=== PATIENT | male | born 1940 | race Caucasian/White ===

== ENCOUNTER 2020-12-20 09:57 | Inpatient (IN) | payer MEDICARE ==
[~2020-12-20] VITALS: Ht 167.6 cm; Wt 178.6 kg
[~2020-12-20 09:57] MED LIST: ACET500T68 PO; ASPI-630 PO; ASPI81TA50 PO; ASPI81TA59 PO; CEFT1FRO2 IV; CETI10TA16 PO; CETI10TA74 PO; CLON1TAB PO; DILT240T8 PO; DULO60CA6 PO; FINA5TAB4 PO; FLUO20CA20 PO; FURO20TA3 PO; FURO40TA4 PO; FURO80TA72 PO; GLIM1TAB PO; GLIM2TAB7 PO; IPRA4AER INH; LACT10SO2 PO; LACT10SO26 PO; LACT1CAP21 PO; LACT1CAP37 PO; LINE600T12 PO; LOSA100T14 PO; MAGN200T7 PO; MAGN250T9 PO; MAGN400T5 PO; MAGN500C10 PO; METO50TA6 PO; MOME15CR7 TP; MULT-245 PO; MULT-445 PO; MUPI15CR8 TP; NYST15PO9 TP; OMEG-33 PO; OMEG1CAP38 PO; ONDA4TAB12 PO; OXYB5TAB10 PO; OXYB5TAB33 PO; PHEN26CR2 RC; PHEN28OI8 RC; PIOG30TA41 PO; POTA10TA5 PO; POTA20TA4 PO; RIFA550T4 PO; SERT-268 PO; SIMV40TA18 PO; SIMV80TA17 PO; SITA100T PO; TAMS0.4C97 PO; ZOLP10TA PO
[2020-12-20] MEDS ORDERED: IV NORMAL SALINE 1,000ML 1,000 ML IV ONE (10:00)
--- NOTE | 2020-12-20 10:30 | PHYS DOC ---
Past History Past Medical History: CHF, COPD, Depression, Diabetes, Renal Disease, Vascular Disease (Venous insufficiency) Additional Past Medical Histor: Right retinal detachment Past Medical History Limited secondary to altered mental status Past Surgical History: Knee Replacement Past Surgical History Limited secondary to altered mental status Smoking: Non-smoker Alcohol Use: None Drug Use: None Social History Limited secondary to altered mental status General Adult EDM: Chief Complaint: ALTERED MENTAL STATUS HPI: HPI: Patient is a 80 year old male who presents via EMS with 2 day history of altered mental status. Per EMS, patient's reports he has been less responsive to her questions over the last few days and has been acting "odd" during the same time. He was recently discharged from [place] [place] [facility] for "high blood sugar" on new diabetic medication. EMS reports at home fingerstick glucose was in the 180s and EKG was unremarkable. Further information obtained from patient's daughter reveals patient was talking about grandchildren that he does not have last night. She also adds that the patient has a history of metabolic encephalopathy. Review of the patient's medical record shows that he was admitted in October of 2020 for new onset T2DM at which time he was started on insulin therapy. He was discharged to [place] for strength rehabilitation and his sugars were controlled at that time. Patient denies nausea, vomiting, headache, sensory changes, or focal weakness. History of present illness limited secondary to mental status changes. Review of Systems: Review of Systems: Constitutional: Denies fever or chills Integument: Denies rash Neurologic: Reports altered mental status Review of systems limited secondary to altered mental status. Current Medications: Current Meds: Current Medications Medications (Trade) Dose Ordered Sig/Ivis Start Time Stop Time Status Last Admin Dose Admin Sodium Chloride 1,000 ml @ 1,000 mls/hr 1X ONCE 12/20/20 10:00 12/20/20 10:59 UNV Physical Exam: PE: Constitutional: Well developed, obese, no acute distress, non-toxic appearance HENT: Normocephalic, atraumatic Eyes: Chronic right eye drooping secondary to prior retinal detachment. PERRL, conjunctiva normal, no discharge Neck: Normal range of motion, supple Lungs & Thorax: No respiratory distress, equal chest rise and fall Abdomen: Soft, no tenderness Skin: Bilateral chronic stasis dermatitis. Otherwise warm, dry and intact. Back: No tenderness, no CVA tenderness Extremities: No tenderness, ROM intact, bilateral lower extremity edema Neurologic: Alert to person only. Normal sensory function, no focal deficits noted Psychologic: Affect normal, judgment abnormal EKG: EKG: @1000: 85 BPM, normal sinus rhythm with occasional PVCs, no ST elevation, QRS 104ms, QTC 530ms Radiology/Procedures: Radiology/Procedures: CT STROKE HEAD W/O History: Reason: altered mental status / Spl. Instructions: / History: Comparison: None. Technique: Noncontrast CT imaging was performed of the head. Exposure: One or more of the following individualized dose reduction techniques were utilized for this examination: 1. Automated exposure control 2. Adjustment of the mA and/or kV according to patient size 3. Use of iterative reconstruction technique. Findings: No intracranial hemorrhage. No mass effect. No hydrocephalus. Moderate brain parenchymal volume loss. Mild foci of decreased attenuation within the hemispheric white matter, most often due to chronic microvascular ischemia. Intracranial atheromatous calcifications. Imaged orbits are unremarkable. Imaged paranasal sinuses and mastoid air cells are clear. No acute calvarial fracture. Impression: 1. No acute intracranial abnormality. FOR INTERNAL CODING PURPOSES Critical result: Findings discussed with Dr. Limon at 12/20/2020 10:23 AM. RESULT CODE: (C) Electronically signed by: Elian Bansal DO (12/20/2020 10:31 AM) [id number] XR CHEST 1V History: Reason: altered mental status / Spl. Instructions: / History: Comparison: July 14, 2020. Findings: Degraded evaluation due to patient's altered mental status and ability to be properly positioned. No consolidation within the imaged lung. No definite pleural effusion. No pneumothorax. Unchanged enlarged cardiac size. Impression: 1. Degraded evaluation. No definite acute cardiopulmonary process. Electronically signed by: Elian Bansal DO (12/20/2020 11:03 AM) [id number] Heart Score: C/O Chest Pain: N/A Course & Med Decision Making: Course & Med Decision Making Pertinent Labs and Imaging studies reviewed. (See chart for details) 80 year old male with multiple co-morbidities presents with 2 day history of altered mental status. Code Stroke activated and emergent CT head revealed no signs of intracranial hemorrhage. Chest x-ray stable. Blood glucose on arrival was 222. Blood ammonia level was 130. Lactic acid elevated. WBC within normal limits. No active signs of infection appreciated. History and laboratory data consistent with metabolic encephalopathy. Lactulose provided. Hypokalemia and hypomagnesemia addressed. Patient requiring admission for further evaluation and treatment. Discussed with Dr. Juarez (hospitalist) who is in agreement with admission. Discussed findings and plan with patient and daughter, who acknowledge understanding and agreement. Dragon Disclaimer: Dragon Disclaimer: This electronic medical record was generated, in whole or in part, using a voice recognition dictation system. Departure Departure: Impression: Primary Impression: Acute metabolic encephalopathy Additional Impressions: Lactic acidosis Hypokalemia Hypomagnesemia Disposition: ADMITTED INPATIENT Admitting Physician: Ricky Juarez Condition: STABLE Referrals: FAWAD DELAROSA MD (PCP) SHIVANI LIMON DO Dec 20, 2020 10:30
--- NOTE | 2020-12-20 10:33 | RAD ---
CT STROKE HEAD W/O History: Reason: altered mental status / Spl. Instructions: / History: Comparison: None. Technique: Noncontrast CT imaging was performed of the head. Exposure: One or more of the following individualized dose reduction techniques were utilized for thi s examination: 1. Automated exposure control 2. Adjustment of the mA and/or kV according to patient size 3. Use of iterative reconstruction technique. Findings: No intracranial hemorrhage. No mass effect. No hydrocephalus. Moderate brain parenchymal volume loss. Mild foci of decreased attenuation within the hemispheric whi te matter, most often due to chronic microvascular ischemia. Intracranial atheromatous calcifications . Imaged orbits are unremarkable. Imaged paranasal sinuses and mastoid air cells are clear. No acute ca lvarial fracture. Impression: 1. No acute intracranial abnormality. FOR INTERNAL CODING PURPOSES Critical result: Findings discussed with Dr. Larios at 12/20/2020 10:23 AM. RESULT CODE: (C) Electronically signed by: Elian Bansal DO (12/20/2020 10:31 AM) [id number]
[2020-12-20 10:34] LABS: BASO # 0.1 x10^3/uL (0.0-0.2); BASO % 1 % (0-3); EOS # 0.3 x10^3/uL (0.0-0.7); EOS % 5 % (0-3); HEMATOCRIT 42.6 % (39.0-53.0); HEMOGLOBIN 14.7 g/dL (13.0-17.5); LYMPH # 1.3 x10^3/uL (1.0-4.8); LYMPH % 22 % (24-48); MEAN CORPUSCULAR HEMOGLOBIN 33 pg (25-35); MEAN CORPUSCULAR HGB CONC 35 g/dL (31-37); MEAN CORPUSCULAR VOLUME 95 fL (79-100); MONO # 1.2 x10^3/uL (0.0-1.1); MONO % 20 % (0-9); NEUT # 3.1 x10^3uL (1.8-7.7); NEUT % 52 % (31-73); PLATELET COUNT 111 x10^3/uL (140-400); RED BLOOD COUNT 4.51 x10^6/uL (4.30-5.70); RED CELL DISTRIBUTION WIDTH 14.8 % (11.5-14.5)
[2020-12-20 10:42] LABS: CREATININE 1.1 mg/dL (0.7-1.3); GFR 64.7; POTASSIUM 3.1 mmol/L (3.5-5.1)
--- NOTE | 2020-12-20 10:47 | EKG ---
[address] [address] Test Date: 2020-12-20 Test Time: 10:30:45 Pat Name: SUZETTE NGUYEN Department: Room: Gender: M Web Developer: VIRGEN : 1940 Requested By: SHIVANI LIMON Order Number: [id number] Reading MD: Measurements Intervals Riner Rate: 85 P: AK: QRS: 7 QRSD: 104 T: 61 QT: 440 QTc: 530 Interpretive Statements IRREGULAR RHYTHM, NO P-WAVE FOUND VENTRICULAR PREMATURE COMPLEX(ES), TRIGEMINY PROLONGED QT ABNORMAL ECG RI6.02 No previous ECG available for comparison
[2020-12-20 10:58] LABS: ALBUMIN 3.2 g/dL (3.4-5.0); ALBUMIN/GLOBULIN RATIO 0.7 (1.0-1.7); MAGNESIUM 1.6 mg/dL (1.8-2.4); TOTAL BILIRUBIN 1.8 mg/dL (0.2-1.0); TOTAL PROTEIN 8.1 g/dL (6.4-8.2)
--- NOTE | 2020-12-20 11:06 | RAD ---
XR CHEST 1V History: Reason: altered mental status / Spl. Instructions: / History: Comparison: July 14, 2020. Findings: Degraded evaluation due to patient's altered mental status and ability to be properly positioned. No consolidation within the imaged lung. No definite pleural effusion. No pneumothorax. Unchanged enlarg ed cardiac size. Impression: 1. Degraded evaluation. No definite acute cardiopulmonary process. Electronically signed by: Elian Bansal DO (12/20/2020 11:03 AM) [id number]
[2020-12-20] MEDS ORDERED: LACTULOSE 20 GM/30 ML SOLUTION. PO ONE (11:30)
[2020-12-20] MEDS ORDERED: MAGNESIUM SULFATE 2GM 50 ML IV ONE (11:30)
[2020-12-20] MEDS ORDERED: POTASSIUM CHLORIDE 10 MEQ TABLET.ER. PO ONE (11:30)
[2020-12-20 11:31] LABS: BACTERIA,URINE 0 /HPF (0-FEW); BILIRUBIN,URINE NEG (NEG); CLARITY,URINE HAZY; COLOR,URINE YELLOW; GLUCOSE,URINE NEG (NEG); NITRITE,URINE NEG (NEG); RBC,URINE 0 /HPF (0-2); SQUAMOUS EPITHELIAL CELL,UR FEW /LPF
[2020-12-20] MEDS ORDERED: DEXTROSE 50% 25 GM / 50ML DISP.SYRIN. IV PRN (12:00)
[2020-12-20] MEDS: INSULIN LISPRO 300 UNITS/3 ML VIAL. SQ SCH ×2 (12:00→17:47)
[2020-12-20 13:24] VITALS: BP 126/77
--- NOTE | 2020-12-20 13:50 | HP ---
ADMIT DATE: 12/20/2020 ADMISSION HISTORY AND PHYSICAL ATTENDING PHYSICIAN: Dr. Juarez. CHIEF COMPLAINT: Confusion. HISTORY OF PRESENT ILLNESS: The patient is a 80-year-old gentleman well known to us from multiple previous admissions. He has altered mentation. He has a known diagnosis of hepatic encephalopathy, most likely on the basis of passive congestion as well as nonalcoholic steatohepatitis. He was supposedly taking Chronulac, oral lactulose, but he may have not been getting it and again the records are sketchy from previous admissions in the office. Today, his daughter brings him in. He is very confused, lethargic. Ammonia level is 130. He is admitted then with exacerbation of hepatic encephalopathy. I believe in the past he has been admitted with similar condition and treated with lactulose with improvement. PAST MEDICAL HISTORY: Significant for morbid obesity. He is in excess of 400 pounds. He also has acute on chronic diastolic congestive heart failure, sleep apnea, stasis dermatitis, dehydration, obstructive sleep apnea, morbid obesity, poorly controlled diabetes and elevated ammonia levels due to his liver disease. CURRENT MEDICINES: At home included lactulose whether he was taken or not, remains to be seen, aspirin, diltiazem, Cymbalta, finasteride, Lasix 80 twice a day, lactobacillus, multivitamin, omega 3, oxybutynin, potassium, and Zocor. ALLERGIES: HE HAS ALLERGIES TO PEDRO INHIBITORS, PIPERACILLIN, TAZOBACTAM AND VANCOMYCIN, EXACT REACTION IS UNCLEAR. SOCIAL HISTORY: He is a nonsmoker, nondrinker. FAMILY HISTORY: Noncontributory. REVIEW OF SYSTEMS: Poor social situation, lives at home with his . He is in excess of 400 pounds. She does her best, but cannot take care of him. We had discussed many times in the past that he needs to go to a shelter, but the deal breaker is cost and his 's feeling that she can take care of at home. The daughter is aware of this and she is kind of stuck to with the current predicament. The rest of the detailed review of systems is unobtainable due to patient's state. PHYSICAL EXAMINATION: VITAL SIGNS: When I saw him today, his blood pressure is 130 systolic. He is afebrile. Oxygen saturation 97% on room air. HEENT: Head is without trauma. Pupils are reactive. Sclerae nonicteric. Oropharynx is clear. NECK: Supple, no bruits. LUNGS: Shallow respirations. CARDIOVASCULAR: Showed distant heart tones. No gallops. ABDOMEN: Obese, protuberant. I cannot appreciate any liver or spleen enlargement. Bowel sounds are hypoactive. EXTREMITIES: Showed 3+ edema. NEUROLOGIC FINDINGS: Confused, but somewhat arousable. PERTINENT LABORATORY STUDIES: The ammonia level is 130. Chemistry panel is pending. Nonfasting blood sugar 200. ASSESSMENT: 1. A 80-year-old gentleman with hepatic encephalopathy. 2. Liver disease on the basis of passive congestion and nonalcoholic steatohepatitis. 3. Morbid obesity in excess of 400 pounds. 4. Acute on chronic diastolic congestive heart failure. 5. Essential hypertension. 6. Type 2 diabetes. 7. Stasis dermatitis. 8. Generalized debilitation. He does not ambulate and sits in a chair all day. PLAN: 1. Admit to the inpatient unit. 2. Telemetry monitoring. 3. Restart lactulose scheduled. 4. Continue home meds. 5. Serial chemistries. 6. Diabetic diet as tolerated. 7. We will monitor his blood sugars. SARA DR: FARRAH/guillermina TID: [id number] CC: FAWAD DELAROSA MD
[2020-12-20] MEDS ORDERED: ACETAMINOPHEN 500 MG TABLET PO PRN (14:45)
[2020-12-20 14:58] VITALS: BP 149/74
[2020-12-20] MEDS ORDERED: METO2.5T PO ×2 (15:18→15:30)
[2020-12-20] MEDS ORDERED: INSU100V8 SQ (15:18)
[2020-12-20] MEDS ORDERED: ACET500T68 PO (15:18)
[2020-12-20] MEDS ORDERED: LACT10SO26 PO (15:18)
[2020-12-20] MEDS: metOLazone 2.5 MG TABLET PO SCH (17:44)
[2020-12-20 18:46] VITALS: BP 146/80
[2020-12-20] MEDS: LACTULOSE 20 GM/30 ML SOLUTION. PO SCH (19:38)
[2020-12-20] MEDS: LACTOBACILLUS RHAMNOSUS GG 1 CAPSULE. PO SCH (19:38)
[2020-12-20] MEDS: ATORVASTATIN CALCIUM 20 MG TABLET PO SCH (19:39)
[2020-12-20] MEDS: OXYBUTYNIN CHLORIDE 5 MG TABLET PO SCH (19:39)
[2020-12-20] MEDS: OMEGA-3 FATTY ACIDS/FISH OIL 1,000 MG CAPSULE. PO SCH (19:39)
[2020-12-20] MEDS: POTASSIUM CHLORIDE 20 MEQ TABLET.ER. PO SCH (19:39)
[2020-12-20] MEDS: FUROSEMIDE 80 MG TABLET PO SCH (19:40)
[2020-12-20] MEDS: INSULIN GLARGINE SYRINGE. SQ SCH (21:03)
[2020-12-20 23:00] VITALS: BP 152/77
[2020-12-21 02:58] VITALS: BP 134/73
[2020-12-21 06:03] VITALS: BP 137/67
--- NOTE | 2020-12-21 08:53 | PN ---
DATE: 12/21/2020 ATTENDING PHYSICIAN: Dr. Juarez. SUBJECTIVE: The patient is awake today, but is still not tracking. He is unable to maintain a conversation. He is bedridden. He has no insight as to what is going on. Does not remember much and can barely keep his eyes open. OBJECTIVE FINDINGS: VITAL SIGNS: Blood pressure this morning is 137/67 mmHg. He is afebrile. Oxygen saturation 91% on room air, pulse is 79 and regular. HEENT: Head is without trauma. Pupils are reactive. Sclerae nonicteric. Oropharynx is clear. NECK: Supple, no bruits. LUNGS: Otherwise clear. CARDIOVASCULAR: Showed distant heart tones. No gallops. ABDOMEN: Obese, protuberant. We cannot assess any organ enlargement due to his girth. EXTREMITIES: Showed chronic stasis dermatitis and cellulitis. He is bedridden. NEUROLOGIC: He remains encephalopathic and little more arousable than yesterday. FOLLOWUP LABORATORY DATA: His blood sugar is 166 mg/dL today because of the lack of correlation with ammonia and hepatic encephalopathy. We have not repeated the ammonia levels. We will treat him clinically based on his symptoms. ASSESSMENT: 1. A 80-year-old gentleman with hepatic encephalopathy, the liver diseases a combination of passive congestion and nonalcoholic steatohepatitis. 2. Morbid obesity. His weight had been over 400 pounds. He is down to 397 on this admission. 3. Essential hypertension. 4. Type 2 diabetes. 5. Stasis dermatitis and does have generalized debilitation. He does not ambulate and sits in a chair all day. PLAN: 1. Continue lactulose as ordered. 2. Telemetry monitoring. 3. Glucose monitoring. 4. Diet as tolerated. 5. The family is wanting him to go to a higher level of care. We will look at a local [facility]. 6. He is a DNR per advanced directives. FARRAH/PHIL DR: FARRAH/guillermina TID: [id number] CC: FAWAD DELAROSA MD
[2020-12-21] MEDS: OMEGA-3 FATTY ACIDS/FISH OIL 1,000 MG CAPSULE. PO SCH ×2 (09:12→20:31)
[2020-12-21] MEDS: ASPIRIN CHEWABLE 81 MG TABLET. PO SCH (09:12)
[2020-12-21] MEDS: MULTIVITAMIN with MINERAL TABLET. PO SCH (09:13)
[2020-12-21] MEDS: LACTOBACILLUS RHAMNOSUS GG 1 CAPSULE. PO SCH ×2 (09:13→20:31)
[2020-12-21] MEDS: DULoxetine HCL 60 MG CAPSULE.DR PO SCH (09:13)
[2020-12-21] MEDS: FINASTERIDE 5 MG TABLET. PO SCH (09:13)
[2020-12-21] MEDS: POTASSIUM CHLORIDE 20 MEQ TABLET.ER. PO SCH ×2 (09:13→20:31)
[2020-12-21] MEDS: LACTULOSE 20 GM/30 ML SOLUTION. PO SCH ×2 (09:14→20:31)
[2020-12-21] MEDS: FUROSEMIDE 80 MG TABLET PO SCH ×2 (09:14→20:32)
[2020-12-21] MEDS: INSULIN LISPRO 300 UNITS/3 ML VIAL. SQ SCH ×3 (09:20→17:09)
[2020-12-21 10:56] VITALS: BP 146/88
[2020-12-21 14:39] VITALS: BP 126/57
[2020-12-21] MEDS: OXYBUTYNIN CHLORIDE 5 MG TABLET PO SCH (20:31)
[2020-12-21] MEDS: ATORVASTATIN CALCIUM 20 MG TABLET PO SCH (20:31)
[2020-12-21] MEDS: INSULIN GLARGINE SYRINGE. SQ SCH (21:00)
[2020-12-21 21:40] VITALS: BP 147/82
[2020-12-22 05:46] VITALS: BP 157/68
[2020-12-22] MEDS: INSULIN LISPRO 300 UNITS/3 ML VIAL. SQ SCH ×3 (08:00→18:06)
[2020-12-22 08:20] LABS: BASO # 0.1 x10^3/uL (0.0-0.2); BASO % 1 % (0-3); EOS # 0.3 x10^3/uL (0.0-0.7); EOS % 5 % (0-3); HEMATOCRIT 39.3 % (39.0-53.0); HEMOGLOBIN 13.9 g/dL (13.0-17.5); LYMPH # 1.6 x10^3/uL (1.0-4.8); LYMPH % 22 % (24-48); MEAN CORPUSCULAR HEMOGLOBIN 33 pg (25-35); MEAN CORPUSCULAR HGB CONC 35 g/dL (31-37); MEAN CORPUSCULAR VOLUME 94 fL (79-100); MONO # 1.2 x10^3/uL (0.0-1.1); MONO % 17 % (0-9); NEUT # 4.1 x10^3uL (1.8-7.7); NEUT % 56 % (31-73); PLATELET COUNT 98 x10^3/uL (140-400); RED BLOOD COUNT 4.18 x10^6/uL (4.30-5.70); RED CELL DISTRIBUTION WIDTH 15.2 % (11.5-14.5); WHITE BLOOD COUNT 7.4 x10^3/uL (4.0-11.0)
[2020-12-22 08:37] LABS: ALBUMIN 2.9 g/dL (3.4-5.0); ALBUMIN/GLOBULIN RATIO 0.7 (1.0-1.7); CALCIUM 9.1 mg/dL (8.5-10.1); GFR 72.3; TOTAL BILIRUBIN 2.6 mg/dL (0.2-1.0); TOTAL PROTEIN 7.3 g/dL (6.4-8.2)
[2020-12-22] MEDS: FUROSEMIDE 80 MG TABLET PO SCH ×2 (09:00→09:41)
[2020-12-22 09:01] LABS: POTASSIUM 2.5 mmol/L (3.5-5.1)
[2020-12-22] MEDS: POTASSIUM CHLORIDE 20 MEQ TABLET.ER. PO SCH ×2 (09:41→21:56)
[2020-12-22] MEDS: ASPIRIN CHEWABLE 81 MG TABLET. PO SCH (09:41)
[2020-12-22] MEDS: LACTOBACILLUS RHAMNOSUS GG 1 CAPSULE. PO SCH ×2 (09:41→21:57)
[2020-12-22] MEDS: OMEGA-3 FATTY ACIDS/FISH OIL 1,000 MG CAPSULE. PO SCH ×2 (09:41→21:57)
[2020-12-22] MEDS: DULoxetine HCL 60 MG CAPSULE.DR PO SCH (09:41)
[2020-12-22] MEDS: FINASTERIDE 5 MG TABLET. PO SCH (09:42)
[2020-12-22] MEDS: MULTIVITAMIN with MINERAL TABLET. PO SCH (09:42)
[2020-12-22] MEDS: LACTULOSE 20 GM/30 ML SOLUTION. PO SCH ×4 (09:50→21:54)
[2020-12-22] MEDS ORDERED: POTASSIUM CHLORIDE 20 MEQ TABLET.ER. PO ONE ×5 (10:30→17:15)
[2020-12-22 10:36] VITALS: BP 134/73
[2020-12-22 14:09] LABS: BGAS PH 7.49 (7.35-7.46)
[2020-12-22 14:42] VITALS: BP 136/71
[2020-12-22 15:04] LABS: CALCIUM 9.1 mg/dL (8.5-10.1); CREATININE 0.9 mg/dL (0.7-1.3); GFR 81.6
[2020-12-22 15:12] LABS: POTASSIUM 2.9 mmol/L (3.5-5.1)
[2020-12-22] MEDS: metOLazone 2.5 MG TABLET PO SCH (17:11)
[2020-12-22 19:49] LABS: GFR 72.3; POTASSIUM 3.3 mmol/L (3.5-5.1)
[2020-12-22 20:05] LABS: % BANDS 1 % (0-9); % EOS 2 % (0-5); % LYMPHS 40 % (24-48); % MONOS 11 % (0-10); % SEGS 46 % (35-66)
[2020-12-22 20:06] LABS: PLT ESTIMATE DECREASED (ADEQUATE)
[2020-12-22 20:34] VITALS: BP 162/76
[2020-12-22] MEDS: INSULIN GLARGINE SYRINGE. SQ SCH (21:56)
[2020-12-22] MEDS: ATORVASTATIN CALCIUM 20 MG TABLET PO SCH (21:56)
[2020-12-22] MEDS: OXYBUTYNIN CHLORIDE 5 MG TABLET PO SCH (21:57)
--- NOTE | 2020-12-22 22:17 | PN ---
DATE: 12/22/2020 SUBJECTIVE: The patient is a 80-year-old male patient who was admitted with altered mental status, found to be due to hepatic encephalopathy. His ammonia was 130 micromole per liter. He is also known to have morbid obesity and obstructive sleep apnea, on CPAP and marked stasis dermatitis as well as essential hypertension, type 2 diabetes mellitus. He was started on lactulose; however, when I saw him today, he continued to be extremely lethargic, somewhat oriented to self but not to place or time. PHYSICAL EXAMINATION: GENERAL: When I examined him, there was no pallor, jaundice, cyanosis, or thyromegaly. No jugular venous distention. No lower limb edema. VITAL SIGNS: Her heart rate was 83, blood pressure was 134/73, temperature was 98.7, respiratory rate was 20, and oxygen saturation 93% on 2 liters of oxygen. HEAD, EYES, EARS, NOSE, AND THROAT: Normocephalic, atraumatic. NECK: Supple. HEART: Showed normal first and second heart sounds. No gallop, rub, or murmur. CHEST: Shows central trachea, equally reduced expansion, reduced air entry, vesicular breath sounds. No crepitation or rhonchi. ABDOMEN: Markedly distended, soft, nontender. NEUROLOGIC: He was lethargic, but arousable. All his cranial nerves were intact. He moves upper extremities to much good extent than lower extremities. EXTREMITIES: Showed no clubbing, cyanosis, or edema, but he has marked bilateral venous stasis and marked dry hyperkeratotic skin. His intake over the last 24 hours was 1140, output was 2900. LABORATORY DATA: His lab work this morning showed a white cell count of 7400, hemoglobin 13.9, hematocrit 39, MCV 94, and platelet count of 98,000 with normal manual differential. His chemistry showed that his serum sodium was 139, potassium 2.5, chloride 100, bicarbonate 36, anion gap of 3, BUN 21, creatinine 1, estimated GFR was 72 mL per minute, his glucose 164, calcium was 9.1. Total bilirubin was 2.6. AST, ALT, alkaline phosphatase were normal. His serum ammonia is down to 51 from 130 micromole per liter. His total protein was 7.3, albumin 2.9. His prothrombin time, INR, and APTT are all normal. His coronavirus by PCR and rapid testing, both were negative. His chest x-ray was unremarkable and the CT scan of the head showed that the patient has no intracranial hemorrhage, no mass effect, no hydrocephalus. Moderate brain parenchymal volume loss, mild foci of decreased attenuation within the hemispheric white matter, most often due to chronic microvascular ischemia, intracranial atheromatous calcification. ASSESSMENT AND PLAN: 1. Altered mental status due to metabolic encephalopathy and hepatic encephalopathy as his ammonia was elevated and is trending down. 2. He has morbid obesity and obstructive sleep apnea raising possibility of maybe retaining carbon dioxide, so I will arrange for him to have stat ABGs. 3. He is known to have hypertension, type 2 diabetes mellitus, chronic diastolic congestive heart failure, and nonalcoholic steatohepatitis. We will aggressively replenish his potassium and also increase the lactulose to perhaps 45 mL 3 times a day. FLACO DR: Leida TID: [id number]
[2020-12-22 23:29] VITALS: BP 134/65
[2020-12-23 05:34] VITALS: BP 146/74
[2020-12-23] MEDS: INSULIN LISPRO 300 UNITS/3 ML VIAL. SQ SCH ×3 (08:00→17:00)
[2020-12-23] MEDS: LACTOBACILLUS RHAMNOSUS GG 1 CAPSULE. PO SCH ×2 (08:16→21:02)
[2020-12-23] MEDS: MULTIVITAMIN with MINERAL TABLET. PO SCH (08:16)
[2020-12-23] MEDS: ASPIRIN CHEWABLE 81 MG TABLET. PO SCH (08:16)
[2020-12-23] MEDS: DULoxetine HCL 60 MG CAPSULE.DR PO SCH (08:17)
[2020-12-23] MEDS: OMEGA-3 FATTY ACIDS/FISH OIL 1,000 MG CAPSULE. PO SCH ×2 (08:17→21:01)
[2020-12-23] MEDS: FINASTERIDE 5 MG TABLET. PO SCH (08:17)
[2020-12-23] MEDS: POTASSIUM CHLORIDE 20 MEQ TABLET.ER. PO SCH ×4 (08:17→21:01)
[2020-12-23] MEDS: LACTULOSE 20 GM/30 ML SOLUTION. PO SCH ×4 (08:17→21:02)
[2020-12-23 09:43] LABS: ALBUMIN 2.7 g/dL (3.4-5.0); ALBUMIN/GLOBULIN RATIO 0.6 (1.0-1.7); CALCIUM 8.8 mg/dL (8.5-10.1); GFR 72.3; POTASSIUM 3.5 mmol/L (3.5-5.1); TOTAL BILIRUBIN 2.4 mg/dL (0.2-1.0)
[2020-12-23 10:59] VITALS: BP 135/68
[2020-12-23 15:43] VITALS: BP 131/75
[2020-12-23 19:56] VITALS: BP 160/71
[2020-12-23] MEDS: OXYBUTYNIN CHLORIDE 5 MG TABLET PO SCH (21:01)
[2020-12-23] MEDS: ATORVASTATIN CALCIUM 20 MG TABLET PO SCH (21:02)
[2020-12-23] MEDS: INSULIN GLARGINE SYRINGE. SQ SCH (21:03)
[2020-12-23 23:24] VITALS: BP 144/72
--- NOTE | 2020-12-23 23:33 | PN ---
DATE: 12/23/2020 SUBJECTIVE: The patient is resting slightly propped up in bed, in no apparent respiratory distress. He continued to be lethargic, but arousable, mostly bedbound. Adamantly, he was evaluated by the physical therapy or occupational therapy. PHYSICAL EXAMINATION: GENERAL: When I examined him, he looked well and was not in any respiratory distress. There was no pallor, jaundice, cyanosis or thyromegaly. No jugular venous distention. No lower limb edema. VITAL SIGNS: His heart rate was 65, blood pressure was 135/68, temperature was 98.3, respiratory rate 20, and oxygen saturation was 93% on room air. HEAD, EYES, EARS, NOSE, AND THROAT: Normocephalic, atraumatic. NECK: Supple. HEART: Showed normal first and second heart sounds, no gallop or murmur. CHEST: Clear to auscultation. No crepitation or rhonchi. ABDOMEN: Distended, soft, nontender. NEUROLOGIC: He was lethargic, but arousable. All his cranial nerves intact. He moves upper extremities to much good extent. EXTREMITIES: Examination of the lower extremities showed no clubbing, cyanosis or edema. He has chronic venous stasis and very dry scaly skin. His intake 1700, output was 3300. LABORATORY DATA: As of yesterday showed white cell count is 7400, hemoglobin 13.9, hematocrit 39, MCV 94 and platelet count of 98,000 with normal manual differential. His chemistry this morning showed a serum sodium 139, potassium 3.5, chloride 103, bicarbonate 31, anion gap of 5, BUN 19, creatinine 1, estimated GFR was 72 mL per minute, his glucose 210, calcium was 8.8. Total bilirubin and AST slightly elevated. ALT and alkaline phosphatase were normal. Ammonia is up to 72. Total protein 7, albumin 2.7. His prothrombin time was 11, INR 1.1. ASSESSMENT: 1. Altered mental status due to metabolic encephalopathy. His ammonia was elevated, came down to 52 and now today is 72. 2. Morbid obesity and obstructive sleep apnea. However, his blood gas showed no evidence of carbon dioxide retention. 3. The patient has multiple other medical problems including: A. Hypertension. B. Type 2 diabetes mellitus. C. Chronic diastolic congestive heart failure. D. Nonalcoholic steatohepatitis. PLAN: My plan is to discontinue his diuretics. I increase his lactulose to 45 mL every 4 hours as scheduled. He consulted the physical and occupational therapy. We will see how he does today and tomorrow and hopefully, by the time he is more awake and able to participate, therefore, we will discharge him to [facility]. DELMIS/DEYANIRA DR: Leida TID: [id number]
[2020-12-24] MEDS: LACTULOSE 20 GM/30 ML SOLUTION. PO SCH ×4 (01:30→13:30)
[2020-12-24 05:15] VITALS: BP 147/71
[2020-12-24 08:31] VITALS: BP 147/71
[2020-12-24] MEDS: DULoxetine HCL 60 MG CAPSULE.DR PO SCH (08:31)
[2020-12-24] MEDS: ASPIRIN CHEWABLE 81 MG TABLET. PO SCH (08:31)
[2020-12-24] MEDS: FINASTERIDE 5 MG TABLET. PO SCH (08:31)
[2020-12-24] MEDS: POTASSIUM CHLORIDE 20 MEQ TABLET.ER. PO SCH ×2 (08:31→14:00)
[2020-12-24] MEDS: LACTOBACILLUS RHAMNOSUS GG 1 CAPSULE. PO SCH (08:31)
[2020-12-24] MEDS: OMEGA-3 FATTY ACIDS/FISH OIL 1,000 MG CAPSULE. PO SCH (08:31)
[2020-12-24] MEDS: MULTIVITAMIN with MINERAL TABLET. PO SCH (08:31)
[2020-12-24] MEDS: INSULIN LISPRO 300 UNITS/3 ML VIAL. SQ SCH ×2 (08:34→12:20)
[2020-12-24] MEDS ORDERED: NYSTATIN TOPICAL POWDER 15GM BOTTLE. TP SCH (09:00)
[2020-12-24 09:23] LABS: CALCIUM 8.8 mg/dL (8.5-10.1); CREATININE 0.9 mg/dL (0.7-1.3); GFR 81.6; POTASSIUM 3.2 mmol/L (3.5-5.1)
--- NOTE | 2020-12-24 13:48 | DISCH ---
DISCHARGE ORDERS DISCHARGE DATE: Dec 24, 2020 FINAL DIAGNOSIS metabolic encephalopathy SHIN MORBID OBESITY CONDITION AT DISCHARGE: Stable Code Status: DNR/DNI SNF STAY <30 DAYS: Yes POST DISCHARGE ORDERS: ACTIVITY ORDERS: Activity as tolerated DIET AFTER DISCHARGE: ADA DISCHARGE MEDICATIONS: Home Meds Reported Medications Metolazone (METOLAZONE) 2.5 Mg Tablet, 2.5 MG PO QMWF for CHF, TAB 12/20/20 Acetaminophen (ACETAMINOPHEN) 500 Mg Tablet, 1 TAB PO PRN Q4HRS PRN for pain or fever for 15 Days, #60 TAB 0 Refills 12/20/20 Lactulose (LACTULOSE) 10 Gm/15 Ml Solution, 30 ML PO BID for constipation, L 0 Refills 12/20/20 Insulin Glargine,Hum.rec.anlog (LANTUS) 100 Unit/1 Ml Vial, 28 UNIT SQ HS for High blood surgar , EACH 12/20/20 Lactobacillus Combo No.10 (PROBIOTIC) 1 Each Capsule, 1 TAB PO DAILY for SUPPLEMENT for 30 Days, #30 TAB 0 Refills 10/20/20 Oxybutynin Chloride (OXYBUTYNIN CHLORIDE) 5 Mg Tablet, 1 TAB PO HS for OVERACTIVE BLADDER, #60 TAB 11 Refills 10/20/20 Diltiazem HCl (Diltiazem 24Hr ER) 240 Mg Tab.er.24h, 1 TAB PO DAILY for HTN for 30 Days, #30 TAB 0 Refills 10/20/20 Furosemide (LASIX) 80 Mg Tablet, 1 TAB PO BID for CHF for 30 Days, #60 TAB 0 Refills 10/20/20 Duloxetine Hcl (CYMBALTA) 60 Mg Capsule.dr, 1 CAP PO DAILY for depression, #90 CAP 3 Refills 07/15/20 Finasteride (FINASTERIDE) 5 Mg Tablet, 1 TAB PO DAILY for retention, #30 TAB 11 Refills 07/15/20 Potassium Chloride (POTASSIUM CHLORIDE ) 20 Meq Tablet.er, 40 MEQ PO BID for SUPPLEMENT 12/30/19 Simvastatin (SIMVASTATIN) 40 Mg Tablet, 40 MG PO HS for HIGH CHOLESTEROL LAST DOSE GIVEN: DATE: YESTERDAY TIME: AT BEDTIME NEXT DOSE DUE: DATE: TODAY TIME: AT BEDTIME 09/17/19 Bristol-3 Fatty Acids/Fish Oil (OMEGA 3 FISH OIL SOFTGEL) 1 Each Capsule.dr, 1 EACH PO BID for SUPPLEMENT LAST DOSE GIVEN: DATE: TODAY TIME: AM NEXT DOSE DUE: DATE: TODAY TIME: PM 09/17/19 Multivitamin (MULTIVITAMINS) 1 Each Tablet, 1 EACH PO DAILY for SUPPLEMENT LAST DOSE GIVEN: DATE: TODAY TIME: AM NEXT DOSE DUE: DATE: TOMORROW TIME: AM 09/17/19 Aspirin (ASPIRIN) 81 Mg Tab.chew, 81 MG PO DAILY for PREVENT BLOOD CLOTS LAST DOSE GIVEN: DATE: TIME: AM NEXT DOSE DUE: DATE: TOMORROW TIME: AM 09/17/19 Discontinued Reported Medications Metolazone (METOLAZONE) 2.5 Mg Tablet, 2.5 MG PO M,W,F for CHF, TAB 12/20/20 TESSA BLUM MD Dec 24, 2020 13:48
--- NOTE | 2020-12-24 21:00 | DS ---
DATE OF DISCHARGE: 12/24/2020 HOSPITAL COURSE: The patient is a 80-year-old male patient who was admitted with altered mental status and was found to be in hepatic encephalopathy. His ammonia level was high at 130. He was admitted and started on lactulose and he continues to be generally weak and unfortunately he is also extremely obese with a body mass index of 63.6 kilograms/square meter. He has also obstructive sleep apnea and as his mental status improved, a decision was made to discharge him to [facility] to continue with lactulose. Continue with potassium supplementation. I did discontinue his Lasix and metolazone as he has profound hypokalemia. PHYSICAL EXAMINATION: GENERAL: When I examined him today, he was definitely more awake, alert, interactive. There was no pallor, jaundice, cyanosis, or thyromegaly. No jugular venous distention. No lower limb edema. VITAL SIGNS: His heart rate was 76, blood pressure is 147/71, temperature was 97.4, respiratory rate was 18 and oxygen saturation was 95% on 2 liters of oxygen. HEAD, EYES, EARS, NOSE, AND THROAT: Normocephalic, atraumatic. NECK: Supple. HEART: Normal first and second heart sounds, no gallop, rub or murmur. CHEST: Clear to auscultation, no crepitation or rhonchi. ABDOMEN: Distended, soft, nontender. NEUROLOGIC: He is definitely more awake, alert, responding appropriately. All cranial nerves intact. He moves upper extremities to much good extent than lower extremities. He has bilateral venous stasis with hyperpigmentation of both lower extremities, very dark scaly skin, has also what seemed to be seborrheic dermatitis. He has an indwelling Al[place] catheter. His intake was 1260, output 1950. LABORATORY DATA: His most recent white cell count was 7400, hemoglobin 14, hematocrit 39, MCV 94 and platelet count of 98,000. His chemistry this morning showed a serum sodium 140, potassium 3.2, chloride 103, bicarbonate 29, anion gap of 8, BUN 15, creatinine 0.9. Estimated GFR was 81 mL per minute. His glucose 180, calcium was 8.8. Ammonia is down to 48. DISCHARGE MEDICATIONS: He was discharged to [facility] to continue on following medications, nystatin powder apply topically, potassium chloride 40 mEq 3 times a day, lactulose 45 mL every 4 hours, multivitamin with calcium one tablet once a day, diltiazem 240 mg once a day, finasteride 5 mg once a day, duloxetine 60 mg daily, aspirin 81 mg once a day, fish oil 1000 mg twice a day, Lactobacillus Rhamnosus 1 capsule twice a day, atorvastatin calcium 20 mg at bedtime, oxybutynin 5 mg at bedtime, Lantus 28 units at bedtime, Humalog insulin as insulin sliding scale before meals. FINAL DISCHARGE DIAGNOSES: 1. Altered mental status due to metabolic encephalopathy, resolved. His ammonia is down to 48 micromole. 2. Morbid obesity, obstructive sleep apnea; however, his blood gas showed no evidence of carbon dioxide retention. The patient has multiple other medical problems including: A. Hypertension. B. Type 2 diabetes mellitus. C. Chronic diastolic congestive heart failure. D. Nonalcoholic steatohepatitis. E. Thrombocytopenia. MIGUEL DR: Leida TID: [id number]
== END 2020-12-24 15:05 | DRG 441 ==
LOC: ER 09:57 → 1 SOUTH 11:50
PROVIDERS: ADMIT Hospitalist; ATTEND Hospitalist
DX: K72.90 Hepatic failure, unspecified without coma (principal); I50.33 Acute on chronic diastolic (congestive) heart failure; G93.41 Metabolic encephalopathy; E87.2 Acidosis; Z68.44 Body mass index [BMI] 60.0-69.9, adult; Z66 Do not resuscitate; K75.81 Nonalcoholic steatohepatitis (NASH); Z20.822 Contact with and (suspected) exposure to COVID-19; D69.6 Thrombocytopenia, unspecified; E11.9 Type 2 diabetes mellitus without complications; E66.01 Morbid (severe) obesity due to excess calories; E83.42 Hypomagnesemia; E87.6 Hypokalemia; G47.33 Obstructive sleep apnea (adult) (pediatric); I11.0 Hypertensive heart disease with heart failure; I87.2 Venous insufficiency (chronic) (peripheral); J44.9 Chronic obstructive pulmonary disease, unspecified; Z96.659 Presence of unspecified artificial knee joint; E86.0 Dehydration; F32.9 Major depressive disorder, single episode, unspecified; R53.81 Other malaise; Z88.1 Allergy status to other antibiotic agents; Z88.8 Allergy status to other drugs, medicaments and biological substances; Z74.01 Bed confinement status
CPT/HCPCS: 36415; 36600; 70450; 71045; 80048; 80053; 81001; 82140; 82553; 82803; 82947; 83605; 83735; 83880; 84484; 85007; 85025; 85610; 85730; 87086; 87426; 93005; 96360; J1815; J3475; U0003; 97530; 99285-25; J7030